=== PATIENT | female | born 1990 | race Caucasian/White ===

== ENCOUNTER 2018-06-16 09:26 | Emergency (ER) | payer OTHER ==
[2018-06-16] MEDS: CEFTRIAXONE 1 GM INJ IM (10:46)
[2018-06-16] MEDS: LIDOCAINE 1% (MPF) 5 ML VIAL INJ (10:46)
== END 2018-06-16 11:10 | disposition home or self-care (01) ==
LOC: FTE 09:26
DX: L03.116 Cellulitis of left lower limb (principal)
CPT/HCPCS: 96372; 99284-25